=== PATIENT | male | born 1955 | race Caucasian/White ===

== ENCOUNTER 2017-12-11 09:23 | Outpatient (CLI) | payer MEDICARE ==
[~2017-12-11] VITALS: Ht 170.2 cm; Wt 56.4 kg
--- NOTE | ~2017-12-11 | OP ---
PATIENT NAME: JELLY MELENDEZ MEDICAL RECORD: [id number] :53 LOCATION:D.CAT ADMISSION DATE: SURGEON: YURIDIA DELA CRUZ MD DATE OF OPERATION: 12/11/2017 PROCEDURES: 1. PTCA stent LAD. 2. Left heart catheterization. 3. Selective coronary angiography. 4. Left ventriculogram. INDICATION: Angina and coronary artery disease. PROCEDURE IN DETAIL: After informed consent was obtained and after a detailed description of the risks, benefits as well as alternative therapies, the patient elected to proceed with angiogram and angioplasty. The right femoral area was prepped and draped in normal sterile fashion. Right femoral artery was cannulated via modified Seldinger technique with placement of 6-Malawian sheath. All catheters exchanged through this sheath. FINDINGS: The left ventriculogram was performed in standard 30-degree TADEO view, reveals good cardiac wall motion throughout all segments. Overall ejection fraction estimated at 55%. SELECTIVE CORONARY ANGIOGRAPHY: 1. Left main has no significant angiographic disease. 2. Left anterior descending has 90% stenosis in the mid vessel. 3. Left circumflex has moderate irregularities, but no flow-limiting stenosis. 4. The right coronary artery has previously placed stent with 80% to 90% in-stent restenosis in the mid vessel. PTCA STENT OF THE LAD: The stent used was a 2.5 x 15 mm Monty. Result was 0% residual stenosis. OVERALL IMPRESSION: Successful percutaneous transluminal coronary angioplasty stent of the left anterior descending going from 90% initial stenosis to 0% residual. PLAN: For [employer] stent of the RCA in the near future. TRANSINT:[id number] Voice Confirmation ID: [id number] DOCUMENT ID: [id number] YURIDIA DELA CRUZ MD at 1218 CC: [id number] DICTATION DATE: 12/11/17 1217 HEEL ATTACHER: 12/11/17 1301 DEP CLI 12/11/17 [place] [id number]
--- NOTE | ~2017-12-11 | HEMODYNAMI ---
PATIENT:JELLY MELENDEZ MEDICAL RECORD: [id number] : 53 LOCATION:[facility] ADMISSION DATE: 12/11/17 Generatedon:12/11/201712:23 Patient name: JELLY MELENDEZ Patient #: [id number] SSN: : 1955 Date of study: 12/11/2017 Page: Of Hemodynamic Procedure Report Patient Data Patient Demographics Procedure consent was obtained First Name: JELLY Gender: Male Last Name: NORA : 1955 [facility] Initial: KODI Age: 62 year(s) Patient #: [id number] Race: Additional ID: [id number] Contact details [address]: [address] [place] [address] State: [place] City: [place] Zip code: [address] Admission Admission Data Admission Date: 12/11/2017 Admission Time: 9:23 Procedure Procedure Types Cath Procedure Diagnostic Procedure LHC LH w/Coronaries PCI Procedure Coronary Stent Coronary Stent Initial Procedure Description Procedure Date Procedure Date: 12/11/2017 Procedure Start Time: 12:03 Procedure End Time: 12:15 Procedure Staff Name Function Tapan Figueroa MD Performing Physician Paula Thurston RT Monitor Timur Ng RN Nurse Berna Andrew RT Scrub Procedure Data Cath Procedure Fluoroscopy Diagnostic fluoroscopy Total fluoroscopy Time: 3 time: 3 min min Diagnostic fluoroscopy Total fluoroscopy dose: 127 dose: 127 mGy mGy Contrast Material Contrast Material Type Amount (ml) Isovue 300 83 Entry Location Entry Primary Successful Side Size Upsize Upsize Entry Closure Succes sful Closure Location (Fr) 1 (Fr) 2 (Fr) Remarks Device Remarks Femoral Right 5 Fr 6 Fr Exoseal artery Short Estimated blood loss: 10 ml Diagnostic catheters Device Type Used For End Catheter Placement MULTIPACK Pigtail 5 Fr Procedure catheter MULTIPACK JL 4.0 5Fr Procedure catheter MULTIPACK 3DRC 5Fr Procedure catheter Procedure Complications No complications Procedure Medications Medication Administration Route Dosage Oxygen etCO2 Nasal cannula 2 l/min Heparin Flush Bag added to field 2 bags (1000units/500ml NS) 0.9% NaCl I.V. 100 ml/hr Fentanyl I.V. 50 mcg Versed I.V. 1 mg Heparin Bolus I.V. 4000 units Integrilin (Bolus I.V. 5 ml 2mg/ml) Integrilin (Bolus wasted 5 ml 2mg/ml) Fentanyl I.V. 50 mcg Versed I.V. 1 mg Hemodynamics Rest Heart Rate: 61 (bpm) Snapshots Pre Cath Intra NCS Post Cath Vital Signs Time Heart Resp SPO2 etCO2 NIBP Rhythm Pain Sedation Rate (ipm) (%) (mmHg) (mmHg) Status Level (bpm) 11:58:21 60 16 96 26.3 140/84(98) NSR 0 (11) 10(A) , No pain 12:02:39 60 17 97 23.3 116/74(90) NSR 0 (11) 10(A) , No pain 12:06:53 60 16 97 16.5 113/70(82) NSR 0 (11) 9(A) , No pain 12:11:05 60 16 97 37.6 101/64(76) NSR 0 (11) 9(A) , No pain 12:15:14 60 17 97 35.3 97/59(73) NSR 0 (11) 9(A) , No pain 12:19:22 60 12 97 28.6 103/65(75) NSR 0 (11) 9(A) , No pain Medications Time Medication Route Dose Verified Delivered Reason Notes Effectiveness by by 12:03:05 Oxygen etCO2 2 Tapan Ding Per physician Nasal l/min Henry Ng RN cannula 12:03:13 Heparin Flush added 2 Tapan Ding used for Bag to bags Henry Ng mooner (1000units/500ml field NS) 12:03:28 0.9% NaCl I.V. 100 Tapan Ding Per physician ml/hr Henry Ng RN 12:03:36 Fentanyl I.V. 50 Tapan Ding for sedation mcg Henry Ng RN 12:03:44 Versed I.V. 1 mg Tapan Ding for sedation Henry Ng RN 12:08:57 Heparin Bolus I.V. 4000 Tapan Ding for units Henry Ng RN anticoagulation 12:09:13 Integrilin I.V. 5 ml Tapan Ding for (Bolus 2mg/ml) Henry Ng RN antiplatelet therapy 12:09:17 Integrilin wasted 5 ml Tapan Ding for (Bolus 2mg/ml) Henry Ng RN antiplatelet therapy 12:09:23 Fentanyl I.V. 50 Tapan Ding for sedation mcg Henry Ng RN 12:09:29 Versed I.V. 1 mg Tapan Ding for sedation Henry Ng mechanical pencils assembler Log Time Note 11:30:59 Paula Thurston RT(R) sent for patient. Start room use. 11:37:34 Informed consent obtained and on chart 11:37:38 Diagnostic Cath Status : Elective 11:38:00 Time tracking: Regular hours (M-F 7:00 - 5:00) 11:38:05 Plan of Care:Hemodynamics will remain stable., Cardiac rhythm will remain stable., Comfort level will be maintained., Respiratory function will remain adequate., Patient/ family verbilizes understanding of procedure., Procedure tolerated without complication., Recovers from procedure without complications.. 11:44:08 Patient received from Pre/Post Procedure Room to CCL 3 Alert and oriented. Tansferred to table in Supine position. 11:44:09 Warm blankets applied, and nicholas hugger turned on for patient comfort. 11:44:10 Correct patient and procedure confirmed by team. 11:44:10 ECG and BP/O2 sat monitors applied to patient. 11:50:46 Vital chart was started 11:50:47 Baseline sample Acquired. 11:50:50 Full Disclosure recording started 11:50:54 H&P Date Dictated: 12/11/2017 Within 30 days and on chart., H&P Addendum completed by physician on day of procedure. (MUST COMPLETE FOR ALL OUTPATIENTS). 11:50:55 Pre-procedure instructions explained to patient. 11:50:55 Pre-op teaching completed and patient verbalized understanding. 11:50:56 Family in waiting room. 11:50:59 Patient NPO since Midnight. 11:51:00 Is the patient allergic to Iodine/contrast media? No. 11:51:01 Was the patient premedicated? No 11:57:07 Vital chart was stopped 11:57:07 Vital chart was started 11:57:19 Is patient on blood thinner?No 11:57:22 Patient diabetic? No. 11:57:26 Snore? No 11:57:28 Sleep apnea? No 11:57:36 Dentures? Yes out 11:57:41 Patient pain scale 0/10 ?. 11:57:49 IV patent on arrival in left forearm with 0.9% NaCl at [facility]. 11:57:55 Lab results completed and on chart. 11:58:00 Right groin area was prepped with chlora-prep and draped in sterile fashion 11:58:01 Alarms reviewed by R. N. 11:58:02 Sharps counted by scrub and verified by R.N. 11:58:03 Physician paged 12:02:08 Physician arrived 12:02:08 --------ALL STOP TIME OUT------ 12:02:09 Final Timeout: patient, procedure, and site verified with staff and physician. All members of the team are in agreement. 12:02:13 Zero performed for pressure channel P1 12:02:21 Right groin site verified by team. 12:02:24 Physical assessment completed. ASA score P 2 - A patient with mild systemic disease as per Tapan Figueroa MD. 12:02:28 Sedation plan: IV Moderate Sedation Medication:Versed, Fentanyl 12:02:32 Use device set Femoral Dx 12:02:35 Procedure started. 12:02:49 ACIST Syringe (59109) opened to sterile field. 12:02:50 Bag Decanter (2002) opened to sterile field. 12:02:50 Medline Cath Pack ([id number]) opened to sterile field. 12:02:51 DIAGNOSTIC WIRE .035 260cm J wire (723698) opened to sterile field. 12:02:52 ACIST Hand Control (81615) opened to sterile field. 12:02:53 ACIST Manifold (83332) opened to sterile field. 12:02:53 DIAGNOSTIC Multipack 5Fr catheter set (GH5988) opened to sterile field. 12:02:54 Tegaderm 4 x 4 (1626W) opened to sterile field. 12:02:54 PERCUTANEOUS ENTRY 19GA needle opened to sterile field. 12:03:00 SHEATH Prelude 5Fr 0.035 (VOT-8A-97-035) opened to sterile field. 12:03:04 Local anesthetic to right femoral artery with Lidocaine 2% by Tapan Figueroa MD.INITIAL ACCESS ONLY 12:03:05 Oxygen 2 l/min etCO2 Nasal cannula was administered by Timur Ng RN; Per physician; 12:03:13 Heparin Flush Bag (1000units/500ml NS) 2 bags added to field was administered by Timur Ng RN; used for procedure; 12:03:13 A 5 Fr sheath was inserted into the Right Femoral artery 12:03:28 0.9% NaCl 100 ml/hr I.V. was administered by Timur Ng RN; Per physician; 12:03:31 A MULTIPACK Pigtail 5 Fr catheter was advanced over the wire and used for Procedure. 12:03:36 Fentanyl 50 mcg I.V. was administered by Timur Ng RN; for sedation; 12::44 Versed 1 mg I.V. was administered by Timur Ng RN; for sedation; 12:03:52 EF : 50 % 12:04:03 Catheter removed. 12:04:13 A MULTIPACK JL 4.0 5Fr catheter was advanced over the wire and used for Procedure. 12:04:18 LCA angiography performed. 12:05:33 Catheter removed. 12:05:40 A MULTIPACK 3DRC 5Fr catheter was advanced over the wire and used for Procedure. 12:06:33 RCA angiography performed. 12:06:35 Catheter removed. 12:06:37 SHEATH 6Fr Prelude ([id number]) opened to sterile field. 12:06:38 INFLATOR Merit BasixCompak (SE4294) opened to sterile field. 12:06:39 CHOICE PT Extra Support 182cm wire (4427417V2) opened to sterile field. 12:07:18 GUIDE 6FR XBLAD 3.5 catheter (15058699) opened to sterile field. 12:07:21 Proceeding to intervention. 12:07:35 Sheath upsized to a 6 Fr Short. 12:07:52 6 Fr XBLAD 3.5 guide catheter was inserted over the wire 12:08:01 Choice PT wire advanced. 12:08:03 Wire advanced across lesion. 12:08:57 Heparin Bolus 4000 units I.V. was administered by Timur Ng RN; for anticoagulation; 12::13 Integrilin (Bolus 2mg/ml) 5 ml I.V. was administered by Timur Ng RN; for antiplatelet therapy; 12:09:17 Integrilin (Bolus 2mg/ml) 5 ml wasted was administered by Timur Ng RN; for antiplatelet therapy; 12::23 Fentanyl 50 mcg I.V. was administered by Timur Ng RN; for sedation; 12:09:29 Versed 1 mg I.V. was administered by Timur Ng RN; for sedation; 12:11:30 Place stent Inflation Number: 1 A JORDYN RX 2.5 x 15 stent ([id number]) was prepped and advanced across the Mid LAD. The stent was deployed at 15 INGE for 0:10 (min:sec). 12:12:08 Wire removed. 12:12:09 Guide catheter removed. 12:12:23 EXOSEAL 6Fr (EX600) opened to sterile field. 12:12:40 Sheath removed intact; hemostasis achieved with Exoseal to the Right Femoral artery. 12:12:42 Procedure ended.(Physican Out) 12:13:34 Fluoroscopy time 03.00 minutes. 12:13:39 Flurop Dose total: 127 12:13:39 Fluoroscopy dose: 127 mGy 12:13:43 Contrast amount:Isovue 300 83ml. 12:13:45 Sharps counted by scrub and verified by R.N. 12:13:47 Insertion/operative site no bleeding no hematoma. 12:13:50 Post Procedure Pulses reassessed and unchanged 12:14:00 Post-procedure physical assessment completed. ASA score P 2 - A patient with mild systemic disease as per Tapan Figueroa MD. 12:14:05 Post procedure rhythm: unchanged. 12:14:09 Estimated blood loss: 10 ml 12:14:11 Post procedure instruction explained to patient.Patient verbalizes understanding. 12:14:24 Procedure type changed to Cath procedure, Diagnostic procedure, LHC, LHC w/Coronaries, PCI procedure, Coronary Stent, Coronary Stent Initial 12:14:27 Procedure and supply charges have been captured, reviewed, submitted and are correct. 12:14:50 Procedure Complication : No complications 12:14:56 Report given to Pre/Post Procedure Room. 12:14:59 Patient transfered to Pre/Post Procedure Room with Stretcher. 12:15:01 Procedure ended. 12:15:01 Full Disclosure recording stopped 12:15:06 End room use (Document Last) 12:15:24 ACC-PCI Only Patient was given prescriptions, or instructed by Tapan Figueroa MD to start/continue the following medications upon discharge: Plavix 12:22:41 Femstop placed over the right femoral artery at 150 mmHg. Hemostasis achieved. 12:23:19 Vital chart was stopped Intervention Summary Intervention Notes Time ActionType Lesion and Equipment Used Action# Pressure Duration Attributes 12:11:30 Place stent Mid LAD JORDYN RX 2.5 x 1 15 00:10 15 stent ([id number]) Device Usage Item Name Manufacture Quantity Catalog Number Hospital Part Current Minimal Lot# / Charge Number Stock Stock Serial# Code ACIST Syringe Acist 1 87372 687126 378493 [id number] 20 (66962) Medical Systems Inc Bag Decanter Microtek 1 2001S 435792 67157 779562 5 () Medical Inc. Medline Cath Cardinal 1 [id number] 765928 66628 739676 5 [employer] ([id number]) DIAGNOSTIC WIRE St Jr 1 639301 138399 039268 910098 30 .035 260cm J wire (232811) ACIST Hand Acist 1 70471 943620 314775 812887 5 Control (80130) Medical Systems Inc ACIST Manifold Acist 1 78341 478800 539121 253053 5 (12417) [employer] Systems Inc DIAGNOSTIC Cardinal 1 [id number] 468359 74406 706912 30 Multipack 5Fr Health catheter set ([id number]) Tegaderm 4 x 4 3M 1 1626W 754482 712927 705222 5 (1626W) PERCUTANEOUS Cook Medical 1 A91827 495473 676135 5 ENTRY 19GA needle SHEATH Prelude Merit 1 [id number]-6N-[id number] 591567 590312 626880 5 5Fr 0.035 Medical (BAD-6I-27-035) MULTIPACK Cardinal 1 854961 5 Pigtail 5 Fr Health catheter MULTIPACK JL Cardinal 1 073023 5 4.0 5Fr Health catheter MULTIPACK 3DRC Cardinal 1 512552 5 5Fr catheter Health SHEATH 6Fr Merit 1 [id number] 002532 744691 298739 5 Prelude Medical ([id number]) INFLATOR Merit Merit 1 QO2933 451799 803136 634101 15 Pack[employer]ksFaraday Bicycles (MM4876) CHOICE PT Extra [place] 1 [id number] 365472 099633 219518 5 Support 182cm Scientific wire ([id number]) GUIDE 6FR XBLAD Cardinal 1 [id number] 694122 435426 450154 10 3.5 catheter Health ([id number]) JORDYN RX 2.5 x Medtronic 1 [id number] 135268 4027032 250261 5 [id number] 15 stent ([id number]) EXOSEAL 6Fr Cardinal 1 EX600 115732 288719 558458 10 (EX600) Health Signature Audit [place] Stage Time Signature Unsigned Intra-Procedure 12/11/2017 Paula Thurston 12:23:14 PM RT(R) Signatures Monitor : Paula Thurston Signature : RT Date : Time : [place] [address] [place] [address]
[~2017-12-11 09:23] MED LIST: BETAPACE 80 MG80 MG PO; HYDROCODON-ACE1 EAC9 PO
[2017-12-11 10:02] VITALS: BP 144/90; Ht 170.2 cm; Wt 56.4 kg
[2017-12-11 10:08] LABS: BASOPHILS 0.7 % (0-2); EOSINOPHILS 2.2 % (0-7); HEMATOCRIT 37.5 % (42.0-54.0); HEMOGLOBIN 12.5 g/dL (13.5-17.5); IMMATURE GRANULOCYTES 0.2 % (0-5); LYMPHOCYTES 34.6 % (15-50); MCH 30.3 pg (26.0-34.0); MCHC 33.3 g/dL (31.0-37.0); MEAN PLATELET VOLUME 9.8 fL (7.4-10.4); MONOCYTES 11.1 % (2-11); NEUTROPHILS 51.2 % (40-80); RBC 4.12 10x6/uL (4.20-6.10); RDW 15.7 % (11.5-14.5); WBC 4.6 10x3/uL (4.8-10.8)
[2017-12-11 10:21] LABS: PLATELET COUNT 300 10x3/uL (130-400)
[2017-12-11 10:45] LABS: CALC OSMOLALITY 286 mosm/kg (275-300); CALCIUM 8.6 mg/dL (8.5-10.1); CARBON DIOXIDE 24.3 mmol/L (21.0-32.0); CHLORIDE - SERUM 110 mmol/L (98-107); GLUCOSE 94 mg/dL (74-106); POTASSIUM - SERUM 4.9 mmol/L (3.5-5.1); SODIUM 141 mmol/L (136-145); UREA NITROGEN 28 mg/dL (7-18); eGFR NON AFRICAN AMERICAN 80 mL/min (90-120)
[2017-12-11] MEDS ORDERED: PLAVIX75 MG PO (12:41)
[2017-12-11] MEDS ORDERED: BAYER CHEWABLE81 MG PO (12:41)
== END 2017-12-11 16:20 | disposition home or self-care (01) ==
LOC: D.CATH 09:23
PROVIDERS: Internal Medicine Interventional Cardiology
DX: I25.119 Atherosclerotic heart disease of native coronary artery with unspecified angina pectoris (principal); T82.855A Stenosis of coronary artery stent, initial encounter; Z01.812 Encounter for preprocedural laboratory examination
CPT/HCPCS: 93458; C9600

== ENCOUNTER → 2017-12-13 09:17 | Outpatient (CLI) | payer MEDICARE ==
[~2017-12-13] VITALS: Ht 170.2 cm; Wt 56.4 kg
--- NOTE | ~2017-12-13 | OP ---
PATIENT NAME: JELLY MELENDEZ MEDICAL RECORD: [id number] :53 LOCATION:D.CAT ADMISSION DATE: SURGEON: YURIDIA DELA CRUZ MD DATE OF OPERATION: 12/13/2017 PROCEDURES: 1. PTCA stent RCA. 2. Selective coronary angiography. INDICATION: Angina and coronary artery disease. PROCEDURE IN DETAIL: After informed consent was obtained and after detailed explanation of risks, benefits as well as alternative therapies, the patient elected to proceed with angiogram and angioplasty. The right radial area was prepped and draped in normal sterile fashion. Right radial artery was cannulated via modified Seldinger technique with placement of 6-[place] sheath. All catheters exchanged through this sheath. FINDINGS: The right coronary had 80% to 90% stenosis in the mid vessel. This was addressed with a 3.5 x 18 mm Monty. Result was 0% residual stenosis. OVERALL IMPRESSION: Successful percutaneous transluminal coronary angioplasty stent of the right coronary artery going from 80% to 90% initial stenosis to 0% residual. TRANSINT:[id number] Voice Confirmation ID: [id number] DOCUMENT ID: [id number] YURIDIA DELA CRUZ MD at 1403 CC: [id number] DICTATION DATE: 12/24/17 1031 VENEER JOINTER RETURNER: 12/24/17 1130 [facility] CLI 12/13/17 [place] [id number] [place] [address]
--- NOTE | ~2017-12-13 | HEMODYNAMI ---
PATIENT:JELLY EMLENDEZ MEDICAL RECORD: [id number] : 53 LOCATION:[facility] ADMISSION DATE: 12/13/17 Generatedon:12/13/201713:46 Patient name: JELLY MELENDEZ Patient #: [id number] SSN: : 1955 Date of study: 12/13/2017 Page: Of Hemodynamic Procedure Report Patient Data Patient Demographics Procedure consent was obtained First Name: JELLY Gender: Male Last Name: NORA : 1955 [facility] Initial: KODI Age: 62 year(s) Patient #: [id number] Race: Additional ID: [id number] Contact details [address]: [address] [place] [address] State: [place] City: [place] Zip code: [address] Admission Admission Data Admission Date: 12/13/2017 Admission Time: 9:17 Height (in.): 68 BSA: 1.67 (m2) Height (cm.): 172.72 BMI: 18.85 (kg/m2) Weight (lbs.): 124 Weight (kg.): 56.25 Procedure Procedure Types Cath Procedure Diagnostic Procedure PCI Procedure Coronary Stent Coronary Stent Initial Procedure Description Procedure Date Procedure Date: 12/13/2017 Procedure Start Time: 13:35 Procedure End Time: 13:42 Procedure Staff Name Function Tapan Figueroa MD Performing Physician Paula Thurston RT Monitor Rere Ibanez RN Nurse Berna Andrew RT Scrub Procedure Data Cath Procedure Fluoroscopy Diagnostic fluoroscopy Total fluoroscopy Time: 1 time: 1 min min Diagnostic fluoroscopy Total fluoroscopy dose: 51 dose: 51 mGy mGy Contrast Material Contrast Material Type Amount (ml) Isovue 300 25 Entry Location Entry Primary Successful Side Size Upsize Upsize Entry Closure Succes sful Closure Location (Fr) 1 (Fr) 2 (Fr) Remarks Device Remarks Femoral Right 6 Fr Exoseal artery Short Estimated blood loss: 10 ml Procedure Complications No complications Procedure Medications Medication Administration Route Dosage Oxygen NC 2 l/min Lidocaine 2% added to field 20 Heparin Flush Bag added to field 2 bags (1000units/500ml NS) 0.9% NaCl I.V. 100 ml/hr Versed I.V. 2 mg Fentanyl I.V. 100 mcg Versed I.V. 1 mg Fentanyl I.V. 50 mcg Heparin Bolus I.V. 4000 units Hemodynamics Rest BSA: 1.67 (m2) O2 Consumption: Estimated: 227.12 (ml/min) O2 Consumption indexed : Estimated:136 (ml/min/m) Pre Cath Intra NCS Post Cath Vital Signs Time Heart Resp SPO2 etCO2 NIBP (mmHg) Rhythm Pain Sedation Rate (ipm) (%) (mmHg) Status Level (bpm) 13:23:06 60 17 96 0 161/94(121) NSR 0 (11) 10(A) , No pain 13:27:24 60 18 93 8.9 152/87(118) NSR 0 (11) 10(A) , No pain 13:31:28 53 13 96 25.3 149/93(128) NSR 0 (11) 10(A) , No pain 13:35:31 60 16 97 35 156/92(128) NSR 0 (11) 9(A) , No pain 13:39:35 59 15 96 28.4 137/90(117) NSR 0 (11) 9(A) , No pain 13:42:03 60 8 96 36.5 139/85(102) NSR 0 (11) 9(A) , No pain Medications Time Medication Route Dose Verified Delivered Reason Notes Effectiveness by by 13:25:35 Oxygen NC 2 Tapan Buffie used for l/min Henry Ibanez RN procedure 13:25:42 Lidocaine 2% added 20ml Tapan Tapan for local to vial Henry Figueroa MD anesthetic field 13:25:49 Heparin Flush added 2 Tapan Tapan used for Bag to bags Henry Figueroa MD procedure (1000units/500ml field NS) 13:25:58 0.9% NaCl I.V. 100 Tapan Buffie Per physician ml/hr Henry Ibanez RN 13:30:49 Versed I.V. 2 mg Tapanivory Loganie for sedation Henry Ibanez RN 13:30:55 Fentanyl I.V. 100 Tapan Loganie for sedation mcg Henry Ibanez RN 13:36:32 Versed I.V. 1 mg Tapan Buffie for sedation Henry Ibanez RN 13:36:37 Fentanyl I.V. 50 Tapan Jernigan for sedation mcg Henry Ibanez RN 13:37:27 Heparin Bolus I.V. 4000 Tapan Jernigan for verifi ed units Henry Ibanez RN anticoagulation with dr figueroa Procedure Log Time Note 13:20:28 Patient Height : 68 inches 13:20:36 Patient Weight : 124 lbs 13:21:19 Diagnostic Cath status Elective 13:21:21 Rere Ibanez RN sent for patient. Start room use. 13:21:43 Time tracking: Regular hours (M-F 7:00 - 5:00) 13:21:47 Plan of Care:Hemodynamics will remain stable., Cardiac rhythm will remain stable., Comfort level will be maintained., Respiratory function will remain adequate., Patient/ family verbilizes understanding of procedure., Procedure tolerated without complication., Recovers from procedure without complications.. 13:21:56 Patient received from Pre/Post Procedure Room to CCL 2 Alert and oriented. Tansferred to table in Supine position. 13:21:57 Warm blankets applied, and nicholas hugger turned on for patient comfort. 13:21:57 Correct patient and procedure confirmed by team. 13:21:59 Signed procedure consent form obtained from patient. 13:22:01 ECG and BP/O2 sat monitors applied to patient. 13:22:01 Vital chart was started 13:22:19 Full Disclosure recording started 13:22:26 H&P Date Dictated: 12/13/2017 Within 30 days and on chart.. 13:22:31 Pre-procedure instructions explained to patient. 13:22:35 Family in waiting room. 13:22:36 Patient NPO since Midnight. 13:22:41 Is the patient allergic to Iodine/contrast media? No. 13:22:45 Was the patient premedicated? Yes 13:22:48 Is patient on blood thinner?Yes 13:22:51 ACC The patient was administered the following blood thiners within the last 24 hours: ACCPlavix 13:22:53 Patient diabetic? No. 13:22:56 Snore? Yes 13:23:03 Patient pain scale 0/10 ?. 13:23:10 IV patent on arrival in left forearm with 0.9% NaCl at KVO. 13:23:20 Lab results completed and on chart. 13:23:23 Right groin area was prepped with chlora-prep and draped in sterile fashion 13:23:24 Alarms reviewed by R. N. 13:23:25 Sharps counted by scrub and verified by R.N. 13:23:25 Physician paged 13:23:26 Physician arrived 13:23:27 --------ALL STOP TIME OUT------ 13:23:28 Final Timeout: patient, procedure, and site verified with staff and physician. All members of the team are in agreement. 13:23:31 Right groin site verified by team. 13:23:34 Physical assessment completed. ASA score P 2 - A patient with mild systemic disease as per Tapan Figueroa MD. 13:23:38 Sedation plan: IV Moderate Sedation Medication:Versed, Fentanyl 13:23:45 Use device set Femoral Dx 13:23:48 ACIST Syringe (34038) opened to sterile field. 13:23:49 Bag Decanter (2002) opened to sterile field. 13:23:49 Medline Cath Pack ([id number]) opened to sterile field. 13:23:52 DIAGNOSTIC WIRE .035 260cm J wire (792352) opened to sterile field. 13:23:53 ACIST Hand Control (17748) opened to sterile field. 13:23:53 ACIST Manifold (57014) opened to sterile field. 13:23:55 Tegaderm 4 x 4 (1626W) opened to sterile field. 13:23:56 PERCUTANEOUS ENTRY 19GA needle opened to sterile field. 13:25:00 INFLATOR Merit BasixCompak (WA6816) opened to sterile field. 13:25:35 Oxygen 2 l/min NC was administered by Rere Ibanez RN; used for procedure; 13:25:42 Lidocaine 2% 20ml vial added to field was administered by Tapan Figueroa MD; for local anesthetic; 13:25:49 Heparin Flush Bag (1000units/500ml NS) 2 bags added to field was administered by Tapan Figueroa MD; used for procedure; 13:25:58 0.9% NaCl 100 ml/hr I.V. was administered by Rere Ibanez RN; Per physician; 13:30:49 Versed 2 mg I.V. was administered by Rere Ibanez RN; for sedation; 13:30:55 Fentanyl 100 mcg I.V. was administered by Rere Ibanez RN; for sedation; 13:34:19 Procedure started. 13:35:34 GUIDE 6FR HS II catheter ([id number]) opened to sterile field. 13:35:43 Local anesthetic to right femoral artery with Lidocaine 2% by Tapan Figueroa MD.INITIAL ACCESS ONLY 13:35:56 A 6 Fr Short sheath was inserted into the Right Femoral artery 13:36:01 CHOICE PT Extra Support 182cm wire ([id number]) opened to sterile field. 13:36:02 SHEATH 6Fr Prelude ([id number]) opened to sterile field. 13:36:17 6 Fr HS2 guide catheter was inserted over the wire 13:36:26 Choice pt ex wire advanced. 13:36:32 Versed 1 mg I.V. was administered by Rere Ibanez RN; for sedation; 13:36:35 Wire advanced across lesion. 13:36:37 Fentanyl 50 mcg I.V. was administered by Rere Ibanez RN; for sedation; 13:37:27 Heparin Bolus 4000 units I.V. was administered by Rere Ibanez RN; for anticoagulation; verified with dr figueroa 13:38:10 Place stent Inflation Number: 1 A JORDYN RX 3.5 x 18 stent ([id number]) was prepped and advanced across the Mid RCA. The stent was deployed at 19 INGE for 0:10 (min:sec). 13:40:31 EXOSEAL 6Fr (EX600) opened to sterile field. 13:40:36 Wire removed. 13:40:37 Guide catheter removed. 13:40:49 Sheath removed intact; hemostasis achieved with Exoseal to the Right Femoral artery. 13:40:52 Procedure ended.(Physican Out) 13:41:03 Fluoroscopy time 01.00 minutes. 13:41:08 Flurop Dose total: 51 13:41:08 Fluoroscopy dose: 51 mGy 13:41:11 Contrast amount:Isovue 300 25ml. 13:41:13 Sharps counted by scrub and verified by R.N. 13:41:14 Insertion/operative site no bleeding no hematoma. 13:41:17 Post-op/insertion site Right Femoral artery dressed using a 4 x 4 and Tegaderm. 13:41:26 Post right femoral artery:stable 13:41:33 Post-procedure physical assessment completed. ASA score P 2 - A patient with mild systemic disease as per Tapan Figueroa MD. 13:41:37 Post procedure rhythm: unchanged. 13:41:39 Estimated blood loss: 10 ml 13:41:41 Post procedure instruction explained to patient.Patient verbalizes understanding. 13:42:22 Procedure and supply charges have been captured, reviewed, submitted and are correct. 13:42:27 Procedure Complication : No complications 13:42:30 Vital chart was stopped 13:42:32 Report given to Pre/Post Procedure Room. 13:42:35 Patient transfered to Pre/Post Procedure Room with Stretcher. 13:42:37 Procedure ended. 13:42:37 Full Disclosure recording stopped 13:42:50 End room use (Document Last) Intervention Summary Intervention Notes Time ActionType Lesion and Equipment Used Action# Pressure Duration Attributes 13:38:10 Place stent Mid RCA JORDYN RX 3.5 x 1 19 00:10 18 stent ([id number]) Device Usage Item Name Manufacture Quantity Catalog Number Hospital Part Current M inimal Lot# / Charge Number Stock Stock Serial# Code ACIST Syringe Acist 1 60522 818894 264522 103985 2 0 (94502) Medical Systems Inc Bag Decanter Microtek 1 2001S 195116 32323 417650 5 () Medical Inc. Medline Cath Cardinal 1 [id number] 626035 60974 798101 5 [facility] ([id number]) DIAGNOSTIC St Jr 1 550053 635427 905075 389620 3 0 WIRE .035 260cm J wire (083503) ACIST Hand Acist 1 18291 459265 960031 594939 5 Control Medical (01990) Systems Inc ACIST Manifold Acist 1 82625 296207 919048 876047 5 (15198) Medical Systems Inc Tegaderm 4 x 4 3M 1 1626W 256322 492056 363961 5 (1626W) PERCUTANEOUS Cook Medical 1 S81699 666815 843991 5 ENTRY 19GA needle GUIDE 6FR HS Medtronic 1 [id number] 898998 89507 896372 1 II catheter ([id number]) INFLATOR Merit Merit 1 [id number] 697616 710105 306557 1 5 YesPlz! (KR1768) CHOICE PT [place] 1 [id number] 307020 320123 035482 5 Extra Support Scientific 182cm wire ([id number]) SHEATH 6Fr Merit 1 [id number] 666561 500161 035266 5 Prelude Medical ([id number]) JORDYN RX 3.5 x Medtronic 1 [id number] 858224 7422083 112487 5 [id number] 18 stent ([id number]) EXOSEAL 6Fr Cardinal 1 EX600 239470 495064 487117 1 0 (EX600) Health Signature Audit [place] Stage Time Signature Unsigned Intra-Procedure 12/13/2017 Paula Thurston 1:46:46 PM RT(R) Signatures Monitor : Paula Thurston Signature : RT Date : Time : [id number] [place] [address]
--- NOTE | ~2017-12-13 | HP ---
PATIENT: JELLY MELENDEZ MEDICAL RECORD: [id number] ACCOUNT: [id number] LOCATION:[facility] : 53 ADMISSION DATE: 12/13/17 HISTORY AND PHYSICAL EXAMINATION ADMITTING DIAGNOSES: 1. Angina. 2. Coronary artery disease. 3. Recent percutaneous transluminal coronary angioplasty stent of LAD with concomitant disease RCA. HISTORY OF PRESENT ILLNESS: Mr. Melendez presents with unstable anginal symptomatology, found to have 2-vessel coronary artery disease of the LAD and RCA, underwent successful PTCA stent of the LAD. He is now brought back for PTCA stent of the RCA. REVIEW OF SYSTEMS: The patient reports easy bruising but reports no swollen glands. The patient reports no fever, no night sweats, no significant weight gain, no significant weight loss. No significant exercise tolerance. The patient reports no dry eyes, no irritation, no vision change. Patient reports no difficulty hearing and no ear pain. Patient reports no frequent nose bleeds or nose and sinus problems. Patient reports on arm pain on exertion. No shortness of breath while lying down. No history of heart murmur. Patient reports no cough, no wheezing or coughing up blood. Patient reports no abdominal pain, no vomiting. Normal appetite. No diarrhea and not vomiting blood. No nausea and no constipation. Patient reports no incontinence. No difficulty urinating. No hematuria. No increased frequency. Patient reports no muscle aches. No weakness, no arthralgias, no back pain. No swelling of the extremities. Patient reports no abnormal mole, no jaundice, no rashes. Reports no loss of consciousness. No weakness and no numbness. No seizures, dizziness, or headaches. The patient reports no depression, no sleep disturbance, feeling safe in a relationship and no alcohol abuse. Patient reports on fatigue. Reports no runny nose or sinus pressure. No itching, no hives, and no frequent sneezing. PHYSICAL EXAMINATION: GENERAL APPEARANCE: Well-nourished, well-developed, appears stated age. Level of distress, comfortable. PSYCHIATRIC: Mental status, alert, normal affect. Orientation, oriented to time, place and person. EYES: Lids and conjunctiva, noninjected. No discharge, no pallor. ENT: Lips, teeth, gums, normal dentition. Oropharynx, no cyanosis, no pallor. NECK: Carotid arteries, bilateral normal upstroke, no bruits, no thrills. JUGULAR VEINS: No jugular venous pressure or distention. CERVICAL LYMPH NODES: Nontender, nonenlarged. THYROID: Not enlarged. Nontender. No nodules. LUNGS: Respiratory effort, unlabored. CHEST: Normal curvature. No thoracic deformity. No chest wall tenderness. Percussion, resonant. Auscultation, clear. No wheezes, no rales, no rhonchi. CARDIOVASCULAR: Precordial exam, nondisplaced. No heaves or pericardial thrills. Rate and rhythm, regular. Heart sounds, normal S1, normal S2. No S3, no gallop, no rub. Systolic murmur, not heard. Diastolic murmur, not heard. EXTREMITIES: No cyanosis, no edema. Peripheral pulses, full and equal in all extremities, except as noted. No bruits appreciated. ABDOMEN: Soft, nondistended. Normal aorta. No bruit. Nontender. No masses. HISTORY AND PHYSICAL [id number] LAMBERT,JELLY KODI Liver, nontender, no hepatomegaly. Spleen, nontender, no splenomegaly. MUSCULOSKELETAL: No joint tenderness. No joint swelling. No erythema. NEUROLOGICAL: Normal gait, normal strength, normal tone. SKIN: Warm and dry. OVERALL IMPRESSION: Anginal symptomatology with significant disease of the right coronary artery. We will proceed with percutaneous transluminal coronary angioplasty stent of the right coronary artery. TRANSINT:[id number] Voice Confirmation ID: [id number] DOCUMENT ID: [id number] YURIDIA DELA CRUZ MD at 1711 CC: [id number] DICTATION DATE: 12/13/17 1053 BOTTLE TESTER: 12/13/17 1111 [facility] CLI 12/13/17 [facility] [address] [id number]
[~2017-12-13 09:17] MED LIST changes: +BAYER CHEWABLE81 MG PO; +PLAVIX75 MG PO
[2017-12-13 09:52] VITALS: BP 138/86; Ht 170.2 cm; Wt 56.4 kg
[2017-12-13 10:00] LABS: BASOPHILS 0.6 % (0-2); EOSINOPHILS 1.3 % (0-7); HEMATOCRIT 37.1 % (42.0-54.0); HEMOGLOBIN 12.5 g/dL (13.5-17.5); IMMATURE GRANULOCYTES 0.2 % (0-5); LYMPHOCYTES 36.4 % (15-50); MCH 30.3 pg (26.0-34.0); MCHC 33.7 g/dL (31.0-37.0); MCV 89.8 fL (80.0-100.0); MEAN PLATELET VOLUME 9.6 fL (7.4-10.4); MONOCYTES 7.5 % (2-11); PLATELET COUNT 309 10x3/uL (130-400); RBC 4.13 10x6/uL (4.20-6.10); RDW 15.5 % (11.5-14.5); WBC 4.6 10x3/uL (4.8-10.8)
[2017-12-13 10:27] LABS: CALC OSMOLALITY 285 mosm/kg (275-300); CALCIUM 8.7 mg/dL (8.5-10.1); CARBON DIOXIDE 25.8 mmol/L (21.0-32.0); CHLORIDE - SERUM 110 mmol/L (98-107); CREATININE - SERUM 0.8 mg/dL (0.6-1.3); GLUCOSE 89 mg/dL (74-106); POTASSIUM - SERUM 4.2 mmol/L (3.5-5.1); SODIUM 142 mmol/L (136-145); UREA NITROGEN 23 mg/dL (7-18); eGFR NON AFRICAN AMERICAN > 90 mL/min (90-120)
== END | disposition home or self-care (01) ==
LOC: D.CATH 09:17
PROVIDERS: Internal Medicine Interventional Cardiology
DX: I25.119 Atherosclerotic heart disease of native coronary artery with unspecified angina pectoris (principal); Z95.5 Presence of coronary angioplasty implant and graft; Z01.812 Encounter for preprocedural laboratory examination

== ENCOUNTER → 2018-09-03 09:22 | Outpatient (CLI) | payer MEDICARE ==
[2017-12-13 09:52] VITALS: BMI 19.4
--- NOTE | 2018-09-08 11:45 | ST ---
PATIENT:JELLY MELENDEZ MEDICAL RECORD: [id number] SEX: M LOCATION:[facility] ORDER #: ADMISSION DATE: 09/03/18 AGE OF PATIENT: 63 REFERRING PHYSICIAN: INTERPRETING PHYSICIAN: YURIDIA DELA CRUZ MD DATE OF SERVICE: 09/03/2018 PROCEDURE: Nuclear stress test. INDICATION: Angina, coronary artery disease, shortness of breath. He was exercised on standard Lexiscan protocol with 32 mCi of sestamibi injected at peak stress, 10 mCi was used previously for rest images. FINDINGS: Gated SPECT reveals preserved ejection fraction at 61% with good wall motioning, thickening, and brightening throughout all segments. SPECT imaging Cardiolite was used as myocardial fusion agent. There is reversibility inferiorly. This includes basal, mid, and apical inferior segments. The degree of reversibility is mild. The amount of myocardium involved is mild to moderate. OVERALL IMPRESSION: 1. This is an abnormal nuclear stress test with reversible changes inferiorly. 2. Gated SPECT reveals preserved ejection fraction at 61%. In this patient with ongoing symptomatology, the current scan does suggest the recurrence of hemodynamically significant coronary artery disease. We will proceed with coronary angiography as followup study if the symptomatology warrants. TRANSINT:[id number] Voice Confirmation ID: [id number] DOCUMENT ID: [id number] YURIDIA DELA CRUZ MD at 1145 CC: [id number] DICTATION DATE: 09/03/18 1614 CELL TENDER: 09/03/18 1929 [facility] CLI 09/03/18 [facility] [address] [place] [address]
== END | disposition home or self-care (01) ==
LOC: D.HCCARDIO 09:22
DX: I25.10 Atherosclerotic heart disease of native coronary artery without angina pectoris (principal)

== ENCOUNTER 2018-09-12 08:56 | Outpatient (CLI) | payer MEDICARE ==
[~2018-09-12] VITALS: Ht 170.2 cm; Wt 59.1 kg
--- NOTE | ~2018-09-12 | HEMODYNAMI ---
PATIENT:JELLY MELENDEZ MEDICAL RECORD: [id number] : 53 LOCATION:[facility] ADMISSION DATE: 09/12/18 Generatedon:09/12/201812:59 Patient name: JELLY MELENDEZ Patient #: [id number] SSN: : 1955 Date of study: 09/12/2018 Page: Of Hemodynamic Procedure Report Patient Data Patient Demographics Procedure consent was obtained First Name: JELLY Gender: Male Last Name: NORA : 1955 [facility] Initial: KODI Age: 63 year(s) Patient #: [id number] Race: Additional ID: [id number] Contact details [address]: [address] [place] [address] State: [place] City: [place] Zip code: [address] Past Medical History Allergies Allergen Reaction Date Comments Reported Percocet 09/12/2018 Admission Admission Data Admission Date: 09/12/2018 Admission Time: 8:56 Procedure Procedure Types Cath Procedure Diagnostic Procedure [facility] w/Coronaries FFR/IVUS Intra-Coronary IVUS Initial Intra-Coronary IVUS Additional PCI Procedure Coronary Stent Coronary Stent Initial Procedure Description Procedure Date Procedure Date: 09/12/2018 Procedure Start Time: 12:40 Procedure End Time: 12:56 Procedure Staff Name Function Tapan Figueroa MD Performing Physician Alondra gEan RT Monitor Berna Andrew RT Scrub Amarilis Mandujano RT Scrub Ronal Gunderson RN Nurse Mahendra Proctor RT Monitor Procedure Data Cath Procedure Fluoroscopy Diagnostic fluoroscopy Total fluoroscopy Time: 3.6 time: 3.6 min min Diagnostic fluoroscopy Total fluoroscopy dose: 374 dose: 374 mGy mGy Contrast Material Contrast Material Type Amount (ml) Isovue 300 78 Entry Location Entry Primary Successful Side Size Upsize Upsize Entry Closure Succes sful Closure Location (Fr) 1 (Fr) 2 (Fr) Remarks Device Remarks Femoral Right 5 Fr 6 Fr Exoseal artery Short Diagnostic catheters Device Type Used For End Catheter Placement MULTIPACK Pigtail 5 Fr LV Angiography catheter MULTIPACK JL 4.0 5Fr Left Coronary catheter Angiography MULTIPACK 3DRC 5Fr Right Coronary catheter Angiography Procedure Complications No complications Procedure Medications Medication Administration Route Dosage 0.9% NaCl I.V. 100 ml/hr Oxygen etCO2 Nasal cannula 2 l/min Heparin Flush Bag added to field 2 bags (1000units/500ml NS) Lidocaine 2% added to field 20 Versed I.V. 0.5 mg Fentanyl I.V. 25 mcg Heparin Bolus I.V. 4000 units Integrilin (Bolus I.V. 5 ml 2mg/ml) Integrilin (Bolus wasted 5 ml 2mg/ml) Plavix P.O. 600 mg Hemodynamics Rest Heart Rate: 62 (bpm) Snapshots Pre Cath Intra NCS Post Cath Vital Signs Time Heart Resp SPO2 etCO2 NIBP Rhythm Pain Sedation Rate (ipm) (%) (mmHg) (mmHg) Status Level (bpm) 12:28:29 62 10 97 0 152/91(93) NSR 0 (11) 10(A) , No pain 12:32:46 62 16 98 12 109/70(85) NSR 0 (11) 10(A) , No pain 12:36:47 60 13 98 28.5 109/65(82) NSR 0 (11) 10(A) , No pain 12:40:47 60 13 98 28.5 109/71(85) NSR 0 (11) 9(A) , No pain 12:44:46 61 13 98 28.5 114/74(95) NSR 0 (11) 9(A) , No pain 12:48:48 60 13 98 29.3 122/74(97) NSR 0 (11) 9(A) , No pain 12:52:54 62 12 98 31.5 104/70(81) NSR 0 (11) 10(A) , No pain 12:56:52 62 13 98 23.3 113/73(99) NSR 0 (11) 10(A) , No pain Medications Time Medication Route Dose Verified Delivered Reason Notes Effectiveness by by 12:31:46 0.9% NaCl I.V. 100 Ronal Ronal Per physician ml/hr Jalyn Gunderson RN RN 12:31:57 Oxygen etCO2 2 Ronal Ronal for low 02 sats Nasal l/min Jalyn graham RN RN 12:32:07 Heparin Flush added 2 Ronal Ronal used for Bag to bags Jalyn Gunderson procedure (1000units/500ml field RN RN NS) 12:32:18 Lidocaine 2% added 20ml Ronal Ronal for local to vial Jalyn Gunderson anesthetic field RN RN 12:40:34 Versed I.V. 0.5 Ronal Ronal for sedation mg Jalyn Gunderson RN RN 12:40:43 Fentanyl I.V. 25 Ronal Ronal for sedation mcg Jalyn Gunderson RN RN 12:48:39 Heparin Bolus I.V. 4000 Ronal Ronal for units Jalyn Gunderson anticoagulation RN RN 12:49:02 Integrilin I.V. 5 ml Ronal Ronal for (Bolus 2mg/ml) Jalyn Gunderson antiplatelet RN RN therapy 12:49:09 Integrilin wasted 5 ml Ronal Ronal to sharp's (Bolus 2mg/ml) Jalyn Gunderson RN RN 12:57:12 Plavix P.O. 600 Ronal Ronal for mg Jalyn Gunderson antiplatelet RN RN therapy Procedure Log Time Note 12:20:02 Berna STEINBERG(R) sent for patient. Start room use. 12:20:03 Time tracking: Regular hours (M-F 7:00 - 5:00) 12:20:07 Plan of Care:Hemodynamics will remain stable., Cardiac rhythm will remain stable., Comfort level will be maintained., Respiratory function will remain adequate., Patient/ family verbilizes understanding of procedure., Procedure tolerated without complication., Recovers from procedure without complications.. 12:22:19 Patient received from Pre/Post Procedure Room to [facility] Alert and oriented. Tansferred to table in Supine position. 12:22:20 Warm blankets applied, and nicholas hugger turned on for patient comfort. 12:22:21 Correct patient and procedure confirmed by team. 12:22:22 Signed procedure consent form obtained from patient. 12:22:22 ECG and BP/O2 sat monitors applied to patient. 12:22:23 Full Disclosure recording started 12:25:28 Vital chart was started 12:25:30 Baseline sample Acquired. 12::23 Baseline sample Acquired. 12::29 Baseline sample Acquired. 12:27:32 Rhythm: sinus rhythm 12:27:52 H&P Date Dictated: 08/25/2018 Within 30 days and on chart.. 12:27:52 Pre-procedure instructions explained to patient. 12::53 Pre-op teaching completed and patient verbalized understanding. 12:28:04 Family in waiting room. 12:28:05 Patient NPO since Midnight. 12:28:12 Patient allergic to Percocet 12:28:15 Is the patient allergic to Iodine/contrast media? No. 12:28:20 Is patient on blood thinner?No 12:28:21 Patient diabetic? No. 12:28:22 ----Pre-sedation anethsthesia assessment.---- 12:28:24 Previous problem with sedation/anesthesia? No ? 12:28:25 Snore? Yes 12:28:27 Sleep apnea? No 12:28:28 Deviated septum? No 12:28:29 Opens mouth fully? Yes 12:28:31 Sticks out tongue? Yes 12:28:33 Airway obstruction? No ? 12:28:35 Dentures? No ? 12:28:38 Pre procedure: right dorsailis pedis pulse 1+ Palpable, but thready & weak; easily obliterated 12:28:43 Patient pain scale 0/10 ?. 12:29:05 IV patent on arrival in left forearm with 0.9% NaCl at 10ml/hr. 12:29:14 Lab results completed and on chart. 12:29:18 Right groin area was prepped with chlora-prep and draped in sterile fashion 12:29:19 Alarms reviewed by R. N. 12:29:19 Sharps counted by scrub and verified by R.N. 12:31:46 0.9% NaCl 100 ml/hr I.V. was administered by Ronal Gunderson RN; Per physician; 12:31:57 Oxygen 2 l/min etCO2 Nasal cannula was administered by Ronal Gunderson RN; for low 02 sats; 12:32:07 Heparin Flush Bag (1000units/500ml NS) 2 bags added to field was administered by Ronal Gunderson RN; used for procedure; 12:32:18 Lidocaine 2% 20ml vial added to field was administered by Ronal Gunderson RN; for local anesthetic; 12:33:38 Physician paged 12:38:32 --------ALL STOP TIME OUT------ 12:38:33 Final Timeout: patient, procedure, and site verified with staff and physician. All members of the team are in agreement. 12:38:35 Right groin site verified by team. 12:38:39 Fire Safety Assessment: A--An alcohol-based skin anteseptic being used preoperatively., C--Open oxygen or nitrous oxide is being used., D--An ESU, laser, or fiber-optic light is being used. 12:38:42 Physical assessment completed. ASA score P 2 - A patient with mild systemic disease as per Tapan Figueroa MD. 12:38:45 Sedation plan: IV Moderate Sedation Medication:Versed, Fentanyl 12:40:08 Use device set Femoral Dx 12:40:09 ACIST Syringe (50352) opened to sterile field. 12:40:09 Bag Decanter (2002S) opened to sterile field. 12:40:10 Medline Cath Pack ([id number]) opened to sterile field. 12:40:10 DIAGNOSTIC WIRE .035 260cm J wire (959104) opened to sterile field. 12:40:12 ACIST Hand Control (62633) opened to sterile field. 12:40:12 ACIST Manifold (21986) opened to sterile field. 12:40:13 DIAGNOSTIC Multipack 5Fr catheter set (WN2078) opened to sterile field. 12:40:13 Tegaderm 4 x 4 (1626W) opened to sterile field. 12:40:13 MICROPUNCTURE 4FR Cook (H77437) opened to sterile field. 12:40:15 SHEATH 5FR [place] (TSG104) opened to sterile field. 12:40:34 Versed 0.5 mg I.V. was administered by Ronal Gunderson RN; for sedation; 12:40:43 Fentanyl 25 mcg I.V. was administered by Ronal Gunderson RN; for sedation; 12:40:46 Procedure started. 12:40:56 Local anesthetic to right femoral artery with Lidocaine 2% by Tapan Figueroa MD.INITIAL ACCESS ONLY 12:41:04 A 5 Fr sheath was inserted into the Right Femoral artery 12:41:11 A MULTIPACK Pigtail 5 Fr catheter was advanced over the wire and used for LV Angiography. 12:41:15 LV angiography performed. 12:41:21 EF : 60 % 12:41:22 Catheter removed. 12:41:28 A MULTIPACK JL 4.0 5Fr catheter was advanced over the wire and used for Left Coronary Angiography. 12:41:32 LCA angiography performed. 12:41:46 Zero performed for pressure channel P1 12:42:20 Catheter removed. 12:42:50 A MULTIPACK 3DRC 5Fr catheter was advanced over the wire and used for Right Coronary Angiography. 12:42:53 RCA angiography performed. 12:44:16 Catheter removed. 12:44:36 Sheath upsized to a 6 Fr Short. 12:46:04 GUIDE 6FR 3DRC catheter ([id number]) opened to sterile field. 12:46:05 CHOICE PT Extra Support 182cm wire ([id number]) opened to sterile field. 12:46:05 INFLATOR Merit BasixCompak (CB5152) opened to sterile field. 12:46:06 SHEATH 6FR [place] (PTL371) opened to sterile field. 12:46:11 [place] IVUS Catheter (19600G) opened to sterile field. 12:46:22 6 Fr 3DRC guide catheter was inserted over the wire 12:46:26 CPTES wire advanced. 12:46:29 FFR/IVUS 12:46:29 IVUS catheter advanced over wire. 12:46:31 IVUS pass to RCA lesion performed. 12:48:05 IVUS catheter removed over wire. 12:48:18 Wire removed. 12:48:21 Guide catheter removed. 12:48:30 6 Fr XBLAD 4 guide catheter was inserted over the wire 12:48:35 CPTES wire advanced. 12:48:37 FFR/IVUS 12:48:38 IVUS catheter advanced over wire. 12:48:39 Heparin Bolus 4000 units I.V. was administered by Ronal Gunderson RN; for anticoagulation; 12:49:02 Integrilin (Bolus 2mg/ml) 5 ml I.V. was administered by Ronal Gunderson RN; for antiplatelet therapy; 12:49:09 Integrilin (Bolus 2mg/ml) 5 ml wasted was administered by Ronal Gunderson RN; to sharp's; 12:49:39 IVUS pass to Circ lesion performed. 12:53:19 IVUS catheter removed over wire. 12:53:53 Place stent Inflation Number: 1 A INTEGRITY RX 3.5 x 09 stent ([id number]) was prepped and advanced across the Mid CX. The stent was deployed at 15 INGE for 0:12 (min:sec). 12:54:04 Stent catheter was removed intact over wire. 12:54:05 Wire removed. 12:54:06 Guide catheter removed. 12:54:13 Contrast amount:Isovue 300 78ml. 12:54:19 Sheath removed intact; hemostasis achieved with Exoseal to the Right Femoral artery. 12:54:21 Procedure ended.(Physican Out) 12:55:41 Fluoroscopy time 03.60 minutes. 12:55:46 Fluoroscopy dose: 374 mGy 12:55:46 Flurop Dose total: 374 12:55:47 Sharps counted by scrub and verified by R.N. 12:55:48 Insertion/operative site no bleeding no hematoma. 12:55:51 Post-op/insertion site Right Femoral artery dressed using a 4 x 4 and Tegaderm. 12:55:54 Post right femoral artery:stable 12:55:56 Post Procedure Pulses reassessed and unchanged 12:55:58 Post procedure: right dorsailis pedis pulse 1+ Palpable, but thready & weak; easily obliterated. 12:56:01 Post procedure rhythm: sinus rhythm 12:56:02 Post procedure instruction explained to patient.Patient verbalizes understanding. 12:56:04 Procedure and supply charges have been captured, reviewed, submitted and are correct. 12:56:22 Procedure type changed to Cath procedure, Diagnostic procedure, C, [facility] w/Coronaries, FFR/IVUS, Intra-Coronary IVUS Initial, Intra-Coronary IVUS Additional, PCI procedure, Coronary Stent, Coronary Stent Initial 12:56:29 Procedure Complication : No complications 12:56:32 Vital chart was stopped 12:56:33 See physician's report for complete and final results. 12:56:34 Report given to Pre/Post Procedure Room. 12:56:38 Patient transfered to Pre/Post Procedure Room with Stretcher. 12:56:40 Procedure ended. 12:56:40 Full Disclosure recording stopped 12:56:43 End room use (Document Last) 12:57:09 ACC-PCI Only Patient was given prescriptions, or instructed by Tapan Figueroa MD to start/continue the following medications upon discharge: Plavix 12:57:12 Plavix 600 mg P.O. was administered by Ronal Gunderson RN; for antiplatelet therapy; Intervention Summary Intervention Notes Time ActionType Lesion and Equipment Action# Pressure Duration Attributes Used 12:53:53 Place stent Mid CX INTEGRITY RX 1 15 00:12 3.5 x 09 stent ([id number]) Device Usage Item Name Manufacture Quantity Catalog Number Hospital Part Current Min imal Lot# / Charge Number Stock Stock Serial# Code ACIST Syringe Acist 1 01883 517606 [id number] [id number] 20 (64122) Medical Systems Inc Bag Decanter Microtek 1 2001S 961697 53510 928437 5 () Medical Inc. Medline Cath Medline 1 [id number] 829791 80167 187140 5 Pack ([id number]) DIAGNOSTIC St Jr 1 732089 669992 469893 522939 30 WIRE .035 260cm J wire (134739) ACIST Hand Acist 1 95813 324928 833524 831703 5 Control Medical (49253) Systems Inc ACIST Acist 1 63912 208429 896309 582028 5 Manifold Medical (34237) Systems Inc DIAGNOSTIC Cardinal 1 [id number] 955022 92341 834767 30 Multipack 5Fr Health catheter set (IS1962) Tegaderm 4 x 3M 1 1626W 998470 090745 219501 5 4 (1626W) MICROPUNCTURE Cook Medical 1 M22214 009892 484336 312382 5 4FR Cook (N40365) SHEATH 5FR Terumo 1 IGH170 032251 078647 720847 5 [place] (ELM426) MULTIPACK Cardinal 1 548465 5 Pigtail 5 Fr Health catheter MULTIPACK JL Cardinal 1 945540 5 4.0 5Fr Health catheter MULTIPACK Cardinal 1 944291 5 3DRC 5Fr Health catheter GUIDE 6FR Medtronic 1 [id number] 862952 645790 199865 1 3DRC catheter (GI20ISW) CHOICE PT [place] 1 [id number] 963679 103231 797997 5 Extra Support Scientific 182cm wire ([id number]) INFLATOR Merit 1 UY7677 011223 503240 466383 15 Girl Meets Dress Medical BasixCompak (FC0760) SHEATH 6FR Terumo 1 WHA805 934268 132091 875697 40 [place] (IUK666) [place] 1 12061Z 812828 336195 284003 8 [place] IVUS Catheter (88232L) INTEGRITY RX Medtronic 1 [id number] 141919 128729 699219 5 [id number] 3.5 x 09 stent ([id number]) Signature Audit [place]ard Stage Time Signature Unsigned Intra-Procedure 09/12/2018 Mahendra Proctor RT(R) 12:59:33 PM Signatures Monitor : Alondra Signature : Counts RT Date : Time : Monitor : Mahendra Proctor RT Signature : Date : Time : [address] [place] [address]
[2018-09-12 09:21] VITALS: BP 141/82; Ht 170.2 cm; Wt 59.1 kg
[2018-09-12 09:54] LABS: BASOPHILS 0.7 % (0-2); EOSINOPHILS 3.3 % (0-7); HEMATOCRIT 42.6 % (42.0-54.0); IMMATURE GRANULOCYTES 0.2 % (0-5); MCH 29.7 pg (26.0-34.0); MCHC 32.9 g/dL (31.0-37.0); MCV 90.3 fL (80.0-100.0); MEAN PLATELET VOLUME 9.9 fL (7.4-10.4); MONOCYTES 6.6 % (2-11); NEUTROPHILS 62.2 % (40-80); PLATELET COUNT 284 10x3/uL (130-400); RBC 4.72 10x6/uL (4.20-6.10); RDW 15.2 % (11.5-14.5); WBC 6.1 10x3/uL (4.8-10.8)
[2018-09-12 10:09] LABS: ANION GAP 17.4 mmol/L (8-16); CALCIUM 9.2 mg/dL (8.5-10.1); CARBON DIOXIDE 21.3 mmol/L (21.0-32.0); CREATININE - SERUM 1.5 mg/dL (0.6-1.3); POTASSIUM - SERUM 4.7 mmol/L (3.5-5.1)
[2018-09-12] MEDS ORDERED: BAYER CHEWABLE81 MG PO (13:19)
[2018-09-12] MEDS ORDERED: PLAVIX75 MG PO (13:19)
--- NOTE | 2018-09-12 13:30 | NUR ---
PATIENT INTERMITTENTLY RESTING. C/O BACK PAIN R/T LAYING FLAT. RIGHT GROIN DRESSING IS CDI, NO S/S OF BLEEDING OR HEMATOMA. NO N/V.
--- NOTE | 2018-09-12 14:00 | NUR ---
PATIENT INTERMITTENTLY RESTING. RESTLESS IN BED, ATTEMPTING TO SIT UP IN BED AND LIFT LEGS - REPEATED TO PATIENT THE IMPORTANCE OF LAYING FLAT AND KEEPING RIGHT LEG STRAIGHT AND STILL. NOW PRESENT AT BEDSIDE. VSS ON ROOM AIR. RIGHT GROIN DRESSING IS CDI, NO S/S OF BLEEDING OR HEMATOMA.
--- NOTE | 2018-09-12 14:30 | NUR ---
PATIENT AWAKE, C/O PAIN IN BACK R/T LAYING FLAT. PATIENT CONTINUES TO SIT UP IN BED AND LIFT LEGS. AGAIN INSTRUCTED PATIENT TO KEEP LAY FLAT AND TO KEEP RIGHT LEG STRAIGHT AND STILL. AT BEDSIDE ATTEMPTING TO REDIRECT PATIENT. VSS ON ROOM AIR. RIGHT GROIN DRESSING IS CDI, NO S/S OF BLEEDING OR HEMATOMA.
--- NOTE | 2018-09-12 15:00 | NUR ---
PATIENT RESTING, VSS ON ROOM AIR. RIGHT GROIN DRESSING IS CDI, NO S/S OF BLEEDING OR HEMATOMA.
--- NOTE | 2018-09-12 15:30 | NUR ---
PATIENT RESTING, VSS ON ROOM AIR. PRESENT AT BEDSIDE. RIGHT GROIN DRESSING IS CDI, NO S/S OF BLEEDING OR HEMATOMA.
--- NOTE | 2018-09-12 16:00 | NUR ---
PATIENT RESTING, HEAD OF BED ELEVATED TO 30 DEGREES. RIGHT GROIN DRESSING IS CDI, NO S/S OF BLEEDING OR HEMATOMA.
--- NOTE | 2018-09-12 16:30 | NUR ---
HEAD OF BED ELEVATED TO 90 DEGREES. RIGHT GROIN DRESSING IS CDI, NO S/S OF BLEEDING OR HEMATOMA. IV REMOVED. EDUCATION REGARDING DISCHARGE INSTRUCTIONS AND MEDICATIONS GIVEN TO PATIENT AND SPOUSE WHO VOICED UNDERSTANDING. VSS ON ROOM AIR. PATIENT VOIDED WITHOUT DIFFICULTY VIA URINAL.
--- NOTE | 2018-09-12 16:45 | NUR ---
PATIENT TRANSPORTED VIA WHEELCHAIR TO CAR WITH SPOUSE DRIVING, ALL BELONGINGS WITH PATIENT.
--- NOTE | 2018-09-16 11:18 | OP ---
PATIENT NAME: JELLY MELENDEZ MEDICAL RECORD: [id number] :53 LOCATION:D.CAT ADMISSION DATE: SURGEON: YURIDIA DELA CRUZ MD DATE OF OPERATION: 09/12/2018 PROCEDURES: 1. PTCA stent left circumflex. 2. Left heart catheterization. 3. Selective coronary angiography. 4. Left ventriculogram. 5. Intravascular ultrasound RCA. 6. Intravascular ultrasound of left circumflex. INDICATION: Angina and coronary artery disease. PROCEDURE IN DETAIL: After informed consent was obtained and after a detailed description of the risks, benefits as well as alternative therapies, the patient elected to proceed with angiogram and angioplasty. The right femoral area was prepped and draped in normal sterile fashion. Right femoral artery was cannulated via modified Seldinger technique with placement of 6-Syriac sheath. All catheters exchanged through this sheath. FINDINGS: Left ventriculogram was performed in standard 30-degree TADEO view, reveals good cardiac wall motion throughout all segments. Overall ejection fraction estimated 60%. SELECTIVE CORONARY ANGIOGRAPHY: 1. Left main is with no significant angiographic disease. 2. Left anterior descending has mild irregularities, but no flow-limiting stenosis. 3. The left circumflex has greater than 80% stenosis in mid vessel confirmed by intravascular ultrasound. 4. Right coronary has nothing greater than 30% confirmed by intravascular ultrasound. PTCA STENT OF THE LEFT CIRCUMFLEX: The stent used was a 3.5 x 9-mm Integrity. Result was 0% residual stenosis. OVERALL IMPRESSION: Successful percutaneous transluminal coronary angioplasty stent of the left circumflex going from greater than 80% initial stenosis to 0% residual. TRANSINT:[id number] Voice Confirmation ID: [id number] DOCUMENT ID: [id number] YURIDIA DELA CRUZ MD at 1118 CC: [id number] DICTATION DATE: 09/12/18 1257 DRESSER TENDER: 09/12/18 1422 [facility] CLI 09/12/18 [place] [place] [address]
== END 2018-09-12 16:45 | disposition home or self-care (01) ==
LOC: D.CATH 08:56
PROVIDERS: Internal Medicine Interventional Cardiology
DX: I25.119 Atherosclerotic heart disease of native coronary artery with unspecified angina pectoris (principal); Z01.812 Encounter for preprocedural laboratory examination